=== PATIENT | female | born 1985 | race Hispanic/Latino ===

== ENCOUNTER → 2024-06-28 | Outpatient (CLI) | payer OTHER ==
[~2024-06-28] VITALS: Ht 2.5 cm; Wt 130.5 kg
--- NOTE | 2024-06-28 11:58 | NUR ---
BARIATRIC INITIAL ASSESSMENT VISIT 1 OF 6 Wt: 287.8 lbs DOS: 06/28/24 Communicated in Faroese during visit. Pt seeking bariatric procedure to aid in wt loss and improve medical health conditions. Pt reported she heard of procedure from friends, is taking prescribed iron, taking HTN medication from [place], struggled with wt after having children, has tried fad diets, lowest wt of 123 lb 21 yrs old, mothers side struggles with wt, does not read bruneian, reads bruneian, 3 children not picky eaters, goes grocery shopping and is the one that mainly cooks, eats 2-3 meals per day + 3 snacks, sodas 2x per day, sweets 1x per week, fast food 1x per week, takes 15 min to eat, does not struggle with emotional eating or stress eating, had hysterectomy, does not struggle with anxiety or depression, does not work, does not travel often, has the means to purchase healthy food with no issue, sleeps 8 hrs per day, is able to exercise, goal wt of 132 lb for [address] conducted 24 hr recall: Breakfast: skipped Lunch: 2 eggs + potato + soda Dinner: carne quisada + rice + water + soda Snack(s): N/A RD reviewed portion sizes with pt, reviewed healthy plate, informed Pt of importance of protein intake, provided and an estimate for estimated carbohydrate intake per day, encouraged exercise Pt verbalized understanding. Goals Established: -MVI QD -water training -walking 2x per week for 30 mins. Pt in agreement with goals and is aware she will need to cut carbonated beverages, sweets and caffeine prior to surgery. Recommended for Pt to complete visits with Dietitian to prepare for bariatric procedure. Thank you for this visit. Addendum: 06/28/24 at [address] Amended: Links added.
== END | disposition home or self-care (01) ==
LOC: DTH 09:07
PROVIDERS: ATTEND Surgery
DX: E66.01 Morbid (severe) obesity due to excess calories (principal); G47.33 Obstructive sleep apnea (adult) (pediatric); I10 Essential (primary) hypertension; M19.91 Primary osteoarthritis, unspecified site; Z71.3 Dietary counseling and surveillance; Z68.41 Body mass index [BMI] 40.0-44.9, adult
CPT/HCPCS: 97802

== ENCOUNTER → 2024-06-28 | Outpatient (CLI) | payer MEDICAID ==
[2024-06-28 10:26] LABS: BASOPHILS # (AUTO) 0.03 K/uL (0.00-0.20); BASOPHILS % (AUTO) 0.3 % (0.0-5.0); EOSINOPHILS # (AUTO) 0.27 K/uL (0.00-0.70); HEMATOCRIT 35.9 % (36-48); IMMATURE GRANULOCYTE ABSOLUTE 0.03 K/uL (0-1); LYMPHOCYTES # (AUTO) 0.8 K/uL (1.0-4.8); LYMPHOCYTES % (AUTO) 9.2 % (21.0-51.0); MEAN CORPUSCULAR HEMOGLOBIN 16.3 pg (27.0-33.0); MEAN CORPUSCULAR VOLUME 56.2 fL (79-99); MONOCYTES # (AUTO) 0.5 K/uL (0.1-1.0); MONOCYTES % (AUTO) 5.5 % (3.0-13.0); NEUTROPHILS # (AUTO) 7.4 K/uL (1.8-7.7); NEUTROPHILS % (AUTO) 81.7 % (40.0-77.0); PLATELET COUNT (AUTO) 329 K/uL (130-400); RED BLOOD CELL COUNT(AUTO) 6.39 MIL/uL (4.00-5.50); RED CELL DISTRIBUTION WIDTH 20.8 % (11.0-15.5); WHITE BLOOD COUNT (AUTO) 9.1 K/uL (4.8-10.8)
--- NOTE | 2024-06-28 10:46 | EKG ---
[facility] Test Date: 2024-06-28 Test Time: 11:03:17 Pat Name: ORLANDO CAZARES Department: LAB Room: Gender: F Coater Hand: [id number] : 1985 Requested By: HIPOLITO CAZARES Order Number: [id number] Reading MD: Hipolito Rosenthal Measurements Intervals [place] Rate: 92 P: 13 CA: 131 QRS: 67 QRSD: 98 T: 29 QT: 386 QTc: 478 Interpretive Statements Sinus rhythm No previous ECG available for comparison Electronically Signed On 06-28-2024 17:05:37 [employer] by Hipolito Rosenthal Please click the below link to view image of tracing.
[2024-06-28 10:53] LABS: HEMOGLOBIN A1C 6.1 % (4.0-6.0)
--- NOTE | 2024-06-28 11:07 | HMCIMG ---
CHEST 1VW HISTORY: Preop COMPARISON: None FINDINGS: A frontal projection of the chest was obtained. No acute pulmonary infiltrates is seen. The heart is normal in size. Prominent interstitial markings are seen. Degenerative changes are seen. No evidence of aortic calcification is seen. IMPRESSION: 1. No acute pulmonary infiltrate is seen.
[2024-06-28 11:11] LABS: ALBUMIN 3.3 g/dL (3.5-5.0); BILIRUBIN,TOTAL 0.5 mg/dL (0.2-1.0); CREATININE 0.5 mg/dL (0.5-1.0); MAGNESIUM 1.9 mg/dL (1.80-2.40); POTASSIUM 3.6 mmol/L (3.5-5.1); T4 (THYROXINE) 9.9 ug/dL (4.7-13.3); THYROID STIMULATING HORMONE 1.41 uIU/mL (0.36-3.74); TOTAL PROTEIN, SERUM 7.3 g/dL (6.0-8.3)
== END | disposition home or self-care (01) ==
LOC: LAB 09:04
PROVIDERS: ATTEND Surgery
DX: I10 Essential (primary) hypertension (principal); G47.33 Obstructive sleep apnea (adult) (pediatric); M19.91 Primary osteoarthritis, unspecified site; E66.01 Morbid (severe) obesity due to excess calories; M47.814 Spondylosis without myelopathy or radiculopathy, thoracic region; Z68.41 Body mass index [BMI] 40.0-44.9, adult; Z79.899 Other long term (current) drug therapy
CPT/HCPCS: 36415; 71045; 80053; 80061; 82306; 82607; 82746; 83036; 83540; 83735; 84207; 84425; 84436; 84443; 84446; 84481; 84590; 84630; 85025; 93005

== ENCOUNTER → 2024-07-19 | Outpatient (CLI) | payer OTHER ==
--- NOTE | 2024-07-19 10:43 | NUR ---
BARIATRIC FOLLOW UP NOTE VISIT 2 OF 6 Wt: 291.6 LBS DOS: 07/19/24 present during visit. Communicated in Tajik during visit. Upon follow up visit, pt presents with a 4 lb wt gain. Pt with MVI QD pill form, was on vit. D prescription for a month and never received refill, portions continue to be small, knew she had wt gain, has not been exercising, has not decreased soda consumption, plans to visit PCP soon. RD conducted 24 hr food recall. Breakfast: skipped Lunch: 2 eggs + coca-cola Dinner: tacos x2 + water S: sweet bread + water RD reviewed simple CHO and complex CHO intake, encouraged pt to decrease soft drink (even sugar free) consumption secondary to carbonation and caffeine, encouraged Pt to exercise, discussed labs, discussed ways to increase iron in food, pt verbalized understanding. RD and pt established goals for next month: -walking 10 min 2x per week -decrease carbonation -1 protein supplement per day Thank you for this visit. Addendum: 07/19/24 at [address] Amended: Links added.
== END | disposition home or self-care (01) ==
LOC: DTH 09:46 → EDUNIT# 10:00
PROVIDERS: ATTEND Surgery
DX: G47.33 Obstructive sleep apnea (adult) (pediatric) (principal); M19.91 Primary osteoarthritis, unspecified site; E66.01 Morbid (severe) obesity due to excess calories; I10 Essential (primary) hypertension; E66.3 Overweight
CPT/HCPCS: 97803

== ENCOUNTER → 2024-08-29 | Outpatient (CLI) | payer OTHER ==
--- NOTE | 2024-08-29 11:23 | NUR ---
BARIATRIC FOLLOW UP NOTE VISIT 3 OF 6 Wt: 272.6 LBS DOS: 08/29/24 present during visit. Communicated in Japanese Upon follow up visit, pt presents with a 18 lb wt loss. Patient reported she is happy with wt loss, cut off soda, has been exercising daily for 2 hours walking + weight training, has been consuming whole wheat products, increased water intake, does not use a straw, has been with MVI QD, feels a lot better with wt loss, on vit. D prescription. RD conducted 24 hr food recall. Breakfast: 2 eggs + water Lunch: grilled chicken + veggies + rice + water Dinner: egg + avocado + water S: N/A RD reviewed sodium recommended intake, reviewed meal prepping, reviewed food with vit. D, encouraged Pt to continue MDs recs with vit. D prescription, pt verbalized understanding. RD and pt established goals for next month: -continue MVI QD -continue exercise QD for 2 hrs -water training Thank you for this visit. Addendum: 08/29/24 at [address] Amended: Links added.
== END | disposition home or self-care (01) ==
LOC: EDUNIT# 08-17 08:00 → DTH 08:20
PROVIDERS: ATTEND Surgery
DX: I10 Essential (primary) hypertension (principal); G47.33 Obstructive sleep apnea (adult) (pediatric); M19.91 Primary osteoarthritis, unspecified site; E66.01 Morbid (severe) obesity due to excess calories; Z68.41 Body mass index [BMI] 40.0-44.9, adult; Z71.3 Dietary counseling and surveillance
CPT/HCPCS: 97803

== ENCOUNTER 2025-05-22 07:49 | Emergency (ER) | payer MEDICAID, OTHER ==
[~2025-05-22] VITALS: Ht 152.4 cm; Wt 98.9 kg
[2025-05-22] MEDS ORDERED: CLIN-141 PO (08:38)
--- NOTE | 2025-05-22 08:38 | ERN ---
ED Note History of Present Illness Stated Complaint: MOUTH PAIN Chief Complaint: Dental Problem Time Seen by MD: 07:53 Dictation: 39-year-old female presents to the emergency department with dental pain left lower jaw. Patient has had work done in the past as a crown to the area. Allergies: Coded Allergies: No Known Drug Allergies (Unverified Allergy, Unknown, 05/22/25) Past Medical History Past Medical History: Hypertension Surgical History: LMP: May 19, 2025 Review of System Dictation Constitutional: Negative for fever,chills, and weight loss Eyes: Negative for injury, pain,redness, and discharge ENT: Per HPI Cardiovascular: Negative for chest pain, palpitations, and edema Respiratory: Negative for shortness of breath, cough, and wheezing, Abdomen/GI: Negative for abdominal pain, nausea, vomiting, diarrhea, and constipation Back: Negative for injury and pain : Negative for injury, bleeding and discharge MS/Extremity: Negative for injury and deformity Skin: Negative for rash, and discoloration Neuro: Negative for headache, weakness, numbness, tingling, and seizure Initial Vital Sign VS Vital Signs Date Time Temp Pulse Resp B/P (MAP) Pulse Ox O2 Delivery O2 Flow Rate FiO2 05/22/25 07:53 97.5 79 18 139/88 98 Room Air 0 Physical Exam Dictation General: awake, alert, NAD Head/Face: Normocephalic, atraumatic Eyes: PERRL, EOMI, vision at baseline ENT: Mild dental caries to the left lower molar, no abscess oral cavity clear Neck: Trachea midline, supple, no nuchal rigidity Cardiovascular: RRR, normal S1/S2, No MRGs, no JVD Respiratory: CTAB, no respiratory distress, No rales or wheezes Abdomen: Soft, non-tender, non-distended, normal bowel sounds, no guarding or rebound. Skin: Warm, dry, normal turgor, no rash MS/Extremity: Pulses equal, no cyanosis, neurovascular intact, FROM Neuro: COAx4, GCS 15, strength 5/5, CN 2-12 intact, normal cerebellar exam, normal gait, Psych: Normal behavior, mood, and affect normal ED Course ED Course Orders Procedure Category Date Status Time Ondansetron Odt 4mg PHA 05/22/25 Complete Tab (Zofran 4mg Odt) 08:29 Ketorolac PHA 05/22/25 Complete Tromethamine 30mg/Ml 08:30 Current Medications Medications (Trade) Dose Ordered Sig/Alexys Route PRN Reason Start Time Stop Time Status Last Admin Dose Admin Ketorolac Tromethamine (toRADol) 30 mg ONCE ONCE IM 05/22/25 08:30 05/22/25 08:33 DC Ondansetron HCl (zoFRAN 4MG ODT) 4 mg ONCE STAT SL 05/22/25 08:29 05/22/25 08:32 DC Vital Signs Date Time Temp Pulse Resp B/P (MAP) Pulse Ox O2 Delivery O2 Flow Rate FiO2 05/22/25 07:53 97.5 79 18 139/88 98 Room Air 0 Medical Decision Making MDM MDM: Differential diagnosis: Rationale: Tests considered and ordered secondary to shared decision making include: Previous outside records reviewed: Old ER visits. Risk of complication and/or morbidity or mortality of patient management: None Medications-Per medication reconciliation Need for hospitalization: Patient does not meet criteria for hospitalization. Need for emergency major/minor surgery: No There are no social concerns with this patient. Prescription drug management Prescriptions will include symptomatic care Patient's prior external medical records from other ER visits were reviewed by me as indicated. Prior testing and results from previous visits were reviewed. Prior tests were taken into account with medical decision making and resource utilization, independent historian/historians were used to obtain complete medical history. I independently interpreted the test that were performed, results were reviewed by me and considered findings on radiology if ordered. Medical management and examination interpretation discussions were had by me with other qualified healthcare professionals as indicated for the patient's care. [age] year old dental caries stable exam nontoxic prescriptions given. Referred to dentist DX & DISP Disposition: Discharge Departure Impression: Primary Impression: Dental cavities Condition: Stable Scripts Clindamycin HCl (Clindamycin HCl) 300 Mg Capsule 1 CAP PO TID for 10 Days, #30 CAP 0 Refills Prov: CALIXTO CHUNG MD 05/22/25 Referrals: VINICIO WALL (PCP) CALIXTO CHUNG MD May 22, 2025 08:38
[2025-05-22 08:51] VITALS: BP 132/83; PULSE 80; RESP 17; TEMP 97.6; O2SAT 99
== END 2025-05-22 08:50 | disposition home or self-care (01) ==
LOC: EDH 07:49
DX: K02.9 Dental caries, unspecified (principal); I10 Essential (primary) hypertension; Z98.890 Other specified postprocedural states
CPT/HCPCS: 99283; 96372; J1885